=== PATIENT | male | born 1990 | race Caucasian/White ===

== ENCOUNTER 2017-07-01 05:45 | Emergency (ER) | payer OTHER ==
[~2017-07-01] VITALS: Ht 172.7 cm; Wt 129.3 kg
--- NOTE | 2017-07-01 05:47 | NUR ---
Brought in by [facility] Officer in custody for medical clearance and blood alcohol draw. Patient to ER 7 for evaluation. Side rails up.
--- NOTE | 2017-07-01 05:49 | NUR ---
ER MD Kaba at bedside evaluating the patient
[2017-07-01 05:50] VITALS: BP_SYST 139
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
[2017-07-01] MEDS ORDERED: IBUPROFEN 800 MG TABLET PO ONE (06:00)
--- NOTE | 2017-07-01 06:28 | NUR ---
Site to lateral left knee cleansed with NS & iodine. Site measures approximately 1cm diameter. Gauze dressing applied. Tetanus vaccination to be given.
[2017-07-01] MEDS ORDERED: DIPH-TET-PERTUS Vaccine 0.5 ML VIAL (ADACEL) I.M. ONE (06:30)
--- NOTE | 2017-07-01 06:33 | NUR ---
Written and verbal consent obtained from patient for blood alcohol, name and verified by patient. Disinfected patient's skin with iodine that did not contain alcohol or other volatile organic compound. Collected the blood from the subject named by venipuncture, in the presence of Officer [id number]. Used a sterile, dry hypodermic needle and dry vacuum blood collection. The dry vacuum blood collection was supplied by the officer named above. Withdrew a specimen of blood from left antecubital of the subject named above. Inverted the blood tube several times to ensure that the preservative and anticoagulant were thoroughly mixed in the blood specimen. I initialed the blood tube label for identification. The labeled blood tube was handed directly to the Officer named above. The blood tube stopper remained in place while I had possession of the blood tube. The Officer placed tube into envelope and sealed it in my presence. Envelope initialed by myself and Officer named above. Patient tolerated well, bandage applied, and bleeding controlled.
--- NOTE | 2017-07-01 06:49 | NUR ---
Kathleen nguyen in EDM - 07/01/17 at 0655 by VALENTINO ROQUE Kaba at bedside evaluating the patient
[2017-07-01 06:50] VITALS: BP_SYST 130
--- NOTE | 2017-07-01 06:50 | NUR ---
Patient discharged in custody of [facility], given written and verbal discharge instructions and verbalizes understanding. ER MD Kaba discussed with patient the results and treatment provided. Patient in stable condition. ID arm band removed. Patient educated on pain management and to follow up with PMD. Pain Scale 0/10. Opportunity for questions provided and answered.
== END 2017-07-01 06:50 ==
LOC: SED 05:45
DX: S81.012A Laceration without foreign body, left knee, initial encounter (principal); M79.671 Pain in right foot; F10.129 Alcohol abuse with intoxication, unspecified; V89.2XXA Person injured in unspecified motor-vehicle accident, traffic, initial encounter; Y93.89 Activity, other specified; Y92.410 Unspecified street and highway as the place of occurrence of the external cause; Y99.8 Other external cause status
CPT/HCPCS: 73564; 90715; 99284